=== PATIENT | female | born 1945 | race Two or more races ===

== ENCOUNTER 2021-11-05 23:36 | Inpatient (IN) | payer MEDICAID, OTHER ==
[~2021-11-05] VITALS: Ht 147.3 cm; Wt 74.8 kg
[2021-11-06] MEDS ORDERED: HYDROMORPHONE 1 MG/1 ML DISP.SYRIN ONE ×2 (00:20→02:46)
[2021-11-06] MEDS ORDERED: ONDANSETRON HCL/PF 4 MG/2 ML VIAL ONE (00:20)
--- NOTE | 2021-11-06 00:20 | NUR ---
BIBRA 41 FROM HOME C/O L SIDED H/A, L RIB PAIN, AND L ARM PAIN S/P FALL OUT OF BED.+BLOOD THINNERS. NO NEURO DEFECITS NOTED BREATHING EVEN AND UNLABORED. PT CHANGED INTO GOWN AND PLACED ON MONITOR AND V/S STABLE.
--- NOTE | 2021-11-06 00:23 | NUR ---
BLOOD COLLECTED AND SENT TO LAB
[2021-11-06] MEDS ORDERED: ONDANSETRON HCL/PF 4 MG/2 ML VIAL IVP ONE (00:30)
[2021-11-06] MEDS ORDERED: HYDROMORPHONE INJ 2 MG/ML DISP.SYRIN IV ONE (00:30)
[2021-11-06 00:47] LABS: BASOPHILS # (AUTO) 0.1 K/uL (0.0-0.2); BASOPHILS % (AUTO) 0.9 % (0.0-2.0); EOSINOPHILS % (AUTO) 14.5 % (0.0-6.0); HEMATOCRIT 32 % (33-45); HEMOGLOBIN 10.1 g/dL (11.5-14.8); LYMPHOCYTES # (AUTO) 1.5 K/uL (0.8-4.8); LYMPHOCYTES % (AUTO) 12.8 % (20.0-44.0); MEAN CORPUSCULAR HGB CONC 32 g/dl (31.0-36.0); MEAN CORPUSCULAR VOLUME 87 fL (82-100); MONOCYTES # (AUTO) 0.5 K/uL (0.1-1.30); MONOCYTES % (AUTO) 4.6 % (2.0-12.0); NEUTROPHILS # (AUTO) 7.8 K/uL (1.8-8.9); NEUTROPHILS % (AUTO) 67.2 % (43.0-81.0); PLATELET COUNT (AUTO) 252 K/uL (150-450); RED BLOOD CELL COUNT(AUTO) 3.62 MIL/uL (4.0-5.2); WHITE BLOOD COUNT (AUTO) 11.6 K/uL (4.3-11.0)
[2021-11-06 00:58] LABS: ABG BASE EXCESS 2.5 mmol/L; ABG PCO2 49.7 mmHg (35.0-45.0); ABG PH 7.374 (7.350-7.450); ABG PO2 56.8 mmHg (75.0-100.0); COHb 0.8 % (0.5-1.5); MetHb 0.3 % (0.0-1.5); O2Hb 87.6 % (94.0-97.0); SITE, ABG Right Radial; VENT MODE, BG NC 2L
[2021-11-06 01:27] LABS: ALANINE AMINOTRANSFERASE 21 U/L (12-78); ALBUMIN 3.5 g/dL (3.4-5.0); ALCOHOL, BLOOD < 3 mg/dL (0-0); ALKALINE PHOSPHATASE 144 U/L (46-116); ASPARTATE AMINOTRANSFERASE 19 U/L (15-37); BILIRUBIN,DIRECT 0.1 mg/dL (0.0-0.2); BILIRUBIN,TOTAL 0.3 mg/dL (0.2-1.0); CALCIUM, SERUM 8.4 mg/dL (8.5-10.1); CARBON DIOXIDE 31 mmol/L (21-32); CHLORIDE 99 mmol/L (98-107); GLUCOSE 205 mg/dL (74-106); POTASSIUM 5.3 mmol/L (3.5-5.1); SODIUM SERUM 135 mmol/L (136-145); TOTAL PROTEIN, SERUM 8.1 g/dL (6.4-8.2); UREA NITROGEN, BLOOD 48 mg/dL (7-18)
[2021-11-06 01:37] LABS: CREATININE 8.7 mg/dL (0.6-1.3)
--- NOTE | 2021-11-06 01:43 | NUR ---
COVID TEST SWABBED AND SENT TO LAB
--- NOTE | 2021-11-06 02:28 | NUR ---
Dr Suarez paged per Dr Xiao.
--- NOTE | 2021-11-06 02:40 | NUR ---
AT BED SIDE SPEAKING TO THE PT AND THE FAMILY
--- NOTE | 2021-11-06 02:55 | NUR ---
Dr Woodall paged per Dr Xiao
[2021-11-06] MEDS ORDERED: HYDROMORPHONE 1 MG/1 ML DISP.SYRIN IV ONE (03:00)
[2021-11-06 03:07] LABS: MAGNESIUM 2.3 mg/dL (1.8-2.4); PHOSPHORUS 3.5 mg/dL (2.5-4.9)
--- NOTE | 2021-11-06 03:24 | NUR ---
LAB AT BEDSIDE FOR BLOOD DRAW
[2021-11-06] MEDS ORDERED: MAGNESIUM HYDROXIDE 30 ML UDC PO PRN (04:30)
[2021-11-06] MEDS ORDERED: ONDANSETRON HCL/PF 4 MG/2 ML VIAL IVP PRN (04:30)
[2021-11-06] MEDS ORDERED: MORPHINE SULFATE INJ 2 MG/ML DISP.SYRIN IV PRN (04:30)
[2021-11-06] MEDS ORDERED: Z GUARD REMEDY 4 OZ OINT TP PRN (04:30)
[2021-11-06] MEDS ORDERED: HYDROCODONE/APAP 5/325MG TABLET PO PRN (04:30)
[2021-11-06] MEDS ORDERED: ZOLPIDEM TARTRATE 5 MG TABLET PO PRN (04:30)
[2021-11-06] MEDS ORDERED: MAG HYDROX/AL HYDROX/SIMETH 30 ML UDC PO PRN (04:30)
--- NOTE | 2021-11-06 04:30 | NUR ---
MRSA SWAB COLLECTED AND SENT TO LAB. PATIENT'S BELONGINGS LIST DONE.
--- NOTE | 2021-11-06 04:55 | NUR ---
bed assignment : 112-1
[2021-11-06] MEDS ORDERED: CLONIDINE HCL 0.1 MG TABLET ONE (04:56)
[2021-11-06] MEDS ORDERED: CLONIDINE HCL 0.1 MG TABLET PO ONE ×2 (05:00→12:00)
--- NOTE | 2021-11-06 05:45 | NUR ---
REPORT GIVEN TO ZOHAIB
--- NOTE | 2021-11-06 06:06 | NUR ---
PT TRANSPORTED TO ROOM 112 ON CARDIAC PER ACLS PROTOCOL VIA GURNEY. V/S STABLE AT TIME OF TRANSFER.
--- NOTE | 2021-11-06 06:20 | NUR ---
RN NOTES RECEIVED CARE OF PATIENT FROM ER NURSE. PATIENT IS A/O X4, ABLE TO VERBALIZE NEEDS, UZBEK SPEAKING. PATIENT ON O2 THERAPY VIA NC AT 4L/MIN, O2 SAT IS 94%, NO SOB NOTED. PATIENT ON TELE MONITOR READING NSR WITH HR OF 85, NO DISTRESS NOTED. PATIENT COMPLAINS OF PAIN ON HER LEFT SIDE, PAIN FOCUSED ON LEFT SIDE OF THE HEAD AND RIBS, WILL ADMINISTER PRN PAIN MEDICATIONS ORDERED. IV ACCESS ON R HAND G 20 PATENT AND FLUSHES WELL. ALL SAFETY MEASURES IMPLEMENTED, BED LOCKED IN PLACE AND AT LOWEST POSITION, SIDE RAILS UP X2, CALL LIGHT WITHIN REACH. WILL CONTINUE TO MONITOR.
[2021-11-06] MEDS: hydrALAZINE HCL IV 20 MG VIAL IV PRN ×3 (06:44→15:25)
--- NOTE | 2021-11-06 07:30 | NUR ---
RN OPENING NOTE RECEIVED CARE OF PATIENT FROM GAME TECHNICIAN NURSE. PATIENT IS A/O X4, ABLE TO VERBALIZE NEEDS, BOLIVIAN SPEAKING. PATIENT ON O2 THERAPY VIA NC AT 4L/MIN, O2 SAT IS >95%, NO SOB NOTED. PATIENT ON TELE MONITOR READING NSR WITH HR OF 85, NO DISTRESS NOTED. PATIENT COMPLAINS OF PAIN ON HER LEFT SIDE, PAIN FOCUSED ON LEFT SIDE OF THE HEAD AND RIBS. IV ACCESS ON R HAND G 20 PATENT AND FLUSHES WELL. ALL SAFETY MEASURES IMPLEMENTED, BED LOCKED IN PLACE AND AT LOWEST POSITION, SIDE RAILS UP X2, CALL LIGHT WITHIN REACH. WILL CONTINUE TO MONITOR.
[2021-11-06] MEDS: PANTOPRAZOLE 40 MG TABLET.DR PO SCH (07:57)
[2021-11-06 08:00] VITALS: BP 164/78
[2021-11-06] MEDS ORDERED: NIFE60TA73 PO (08:54)
[2021-11-06] MEDS ORDERED: APIX5TAB PO (08:54)
[2021-11-06] MEDS ORDERED: ALBU18HF2 IH (08:54)
[2021-11-06] MEDS ORDERED: FOLI0.8T23 PO (08:54)
[2021-11-06] MEDS ORDERED: SIMV-46 PO (08:54)
[2021-11-06] MEDS ORDERED: LORA10TA68 PO (08:54)
[2021-11-06] MEDS ORDERED: LEVO-146 PO (08:54)
[2021-11-06] MEDS ORDERED: PANT40TA2 PO (08:54)
[2021-11-06] MEDS ORDERED: LOSA100T31 PO (08:54)
[2021-11-06] MEDS ORDERED: INSU100V3 SQ (08:54)
[2021-11-06] MEDS: IPRATROPIUM NEB FS 0.5 MG/2.5 ML AMPUL.NEB NEB SCH ×4 (11:26→23:08)
[2021-11-06 12:00] VITALS: BP 224/89
[2021-11-06] MEDS: HYDROCODONE/APAP 5/325MG TABLET PO PRN (15:26)
[2021-11-06 16:00] VITALS: BP 165/75
[2021-11-06] MEDS: hydrALAZINE HCL 25 MG TABLET PO SCH ×2 (16:00→20:37)
[2021-11-06 16:28] LABS: BAND % (MANUAL) 2 % (0.0-5.0); EOSINOPHILS % (MANUAL) 11 % (0-4); LYMPHOCYTES % (MANUAL) 11 % (16-48); MONOCYTES % (MANUAL) 3 % (0-11.0); NEUTROPHILS % (MANUAL) 73 (42-76)
--- NOTE | 2021-11-06 16:50 | NUR ---
RN NOTE HYDRALAZINE P0 HELD FOR HEMODIALYSIS. WILL ADMINIISTER PRN.
--- NOTE | 2021-11-06 18:44 | NUR ---
RN CLOSING NOTE PATIENT REMAINED STABLE THROUGHOUT SHIFT. PATIENT IS A/O X4, ABLE TO VERBALIZE NEEDS, MALTESE SPEAKING. PATIENT ON O2 THERAPY VIA NC AT 4L/MIN, O2 SAT IS >95%, NO SOB NOTED. PATIENT ON TELE MONITOR READING NSR WITH HR OF 91, NO DISTRESS NOTED. PATIENT COMPLAINS OF PAIN ON HER LEFT SIDE, PAIN FOCUSED ON LEFT SIDE OF THE HEAD AND RIBS. IV ACCESS ON R HAND G 20 PATENT AND FLUSHES WELL. ALL NEEDS MET AND MEDS ADMINISTERED PER MD ORDER. ALL SAFETY MEASURES IMPLEMENTED, BED LOCKED IN PLACE AND AT LOWEST POSITION, SIDE RAILS UP X2, CALL LIGHT WITHIN REACH. WILL ENDORSE TO TIME ANALYSIS CLERK RN.
--- NOTE | 2021-11-06 19:00 | NUR ---
PATIENT RECEIVED HD, 2.L OUT, PER HD NURSE BLOOD PRESSURE STILL 180S, WILL RECHECK AGAIN, PATIENT A/O X4, DAUGHTER AT BEDSIDE, NO SOB/ACUTE DISTRESS, NO CHANGE IN LOC, DENIES ANY HEADACHE, WILL CONTINUE TO MONITOR CLOSELY.
[2021-11-06 20:00] VITALS: BP 144/76
[2021-11-07] VITALS: BP 174/76
[2021-11-07] MEDS: hydrALAZINE HCL IV 20 MG VIAL IV PRN (00:27)
[2021-11-07 04:00] VITALS: BP 172/72
[2021-11-07] MEDS: hydrALAZINE HCL 25 MG TABLET PO SCH ×3 (04:13→20:36)
[2021-11-07] MEDS: IPRATROPIUM NEB FS 0.5 MG/2.5 ML AMPUL.NEB NEB SCH ×6 (04:32→23:47)
[2021-11-07] MEDS: HYDROCODONE/APAP 5/325MG TABLET PO PRN ×3 (05:30→20:35)
--- NOTE | 2021-11-07 06:44 | NUR ---
PATIENT ASLEEP AROUSES TO VERBAL STIMULI , PATIENT A/O X4, ABLE TO VERBALIZE NEEDS AND CONCERNS, NO CHANGE IN LOC, NO SOB/ACUTE DISTRESS, NO CHANGE IN LOC, WITH EPISODES OF HIGH BLOOD PRESSURE, MEDICATION ADMINISTERED ORDERED, HYDRALAZINE PRN X ONCE, LAST BLOOD PRESSURE 150/70 AT 0450, NORCO ADMINISTERED FOR PAIN IN LEFT RIB MANAGER PHARMACY, OTHERWISE NO SIGNIFICANT CHANGE IN CONDITION, REPOSITION PROVIDED AND KEEP HER DRY AND CLEAN, CALL LIGHT W/I REACH, WILL ENDORSE CONTINUITY OF CARE TO NEXT SHIFT NURSE.
[2021-11-07 07:23] LABS: CALCIUM, SERUM 8.2 mg/dL (8.5-10.1); CARBON DIOXIDE 28 mmol/L (21-32); CHLORIDE 97 mmol/L (98-107); CREATININE 6.8 mg/dL (0.6-1.3); GLUCOSE 148 mg/dL (74-106); MAGNESIUM 2.2 mg/dL (1.8-2.4); PHOSPHORUS 3.9 mg/dL (2.5-4.9); POTASSIUM 5.4 mmol/L (3.5-5.1); SODIUM SERUM 133 mmol/L (136-145); UREA NITROGEN, BLOOD 30 mg/dL (7-18)
--- NOTE | 2021-11-07 07:48 | NUR ---
RN OPENING NOTE RECEIVED PATIENT IN BED PATIENT IS A/O X4, ABLE TO VERBALIZE NEEDS, KAZAKH SPEAKING. PATIENT ON O2 THERAPY VIA NC AT 4L/MIN, NO SOB NOTED. NO DISTRESS NOTED. IV ACCESS ON R HAND G 20 PATENT AND FLUSHES WELL. ALL SAFETY MEASURES IMPLEMENTED, BED LOCKED IN PLACE AND AT LOWEST POSITION, SIDE RAILS UP X2, CALL LIGHT WITHIN REACH.
[2021-11-07 08:00] VITALS: BP 159/76
[2021-11-07 08:18] LABS: BASOPHILS # (AUTO) 0.1 K/uL (0.0-0.2); BASOPHILS % (AUTO) 0.7 % (0.0-2.0); EOSINOPHILS % (AUTO) 8.7 % (0.0-6.0); HEMATOCRIT 31 % (33-45); HEMOGLOBIN 10.1 g/dL (11.5-14.8); LYMPHOCYTES # (AUTO) 0.6 K/uL (0.8-4.8); LYMPHOCYTES % (AUTO) 6.5 % (20.0-44.0); MEAN CORPUSCULAR HGB CONC 32 g/dl (31.0-36.0); MEAN CORPUSCULAR VOLUME 88 fL (82-100); MONOCYTES # (AUTO) 0.5 K/uL (0.1-1.30); MONOCYTES % (AUTO) 4.8 % (2.0-12.0); NEUTROPHILS # (AUTO) 7.8 K/uL (1.8-8.9); NEUTROPHILS % (AUTO) 79.3 % (43.0-81.0); PLATELET COUNT (AUTO) 236 K/uL (150-450); RED BLOOD CELL COUNT(AUTO) 3.54 MIL/uL (4.0-5.2); WHITE BLOOD COUNT (AUTO) 9.8 K/uL (4.3-11.0)
[2021-11-07] MEDS: PANTOPRAZOLE 40 MG TABLET.DR PO SCH (08:43)
[2021-11-07 09:14] LABS: ABG BASE EXCESS 0.1 mmol/L; ABG OXYGEN SATURATION 95.8 % (92.0-98.5); ABG PCO2 39.2 mmHg (35.0-45.0); ABG PH 7.415 (7.350-7.450); ABG PO2 81.9 mmHg (75.0-100.0); AaDO2 158.2 mmHg; COHb 1.2 % (0.5-1.5); MetHb 0.3 % (0.0-1.5); O2Hb 94.4 % (94.0-97.0); SITE, ABG Right Radial; VENT MODE, BG 5LPM NC
[2021-11-07 11:44] LABS: THYROID STIMULATING HORMONE 1.561 uIU/mL (0.358-3.74)
[2021-11-07 12:00] VITALS: BP 168/82
[2021-11-07 16:00] VITALS: BP 163/84
[2021-11-07] MEDS: ACETAMINOPHEN 325 MG TABLET PO PRN (16:13)
[2021-11-07] MEDS: NIFEdipine XL (30MG) 30 MG TAB PO SCH (16:13)
[2021-11-07] MEDS ORDERED: NIFEdipine XL (30MG) 30 MG TAB PO SCH (17:00)
--- NOTE | 2021-11-07 19:02 | NUR ---
CT of HEAD shows New mild to moderate acute subarachnoid hemorrhage in the right quadrigeminal cistern taxed to waiting for returning call back
--- NOTE | 2021-11-07 19:08 | NUR ---
RN CLOSING NOTE PATIENT REMAINED STABLE THROUGHOUT SHIFT. PATIENT IS A/O X4, ABLE TO VERBALIZE NEEDS, TAJIK SPEAKING. PATIENT ON O2 THERAPY VIA NC AT 4L/MIN, O2 SAT IS >95%, NO SOB NOTED. PATIENT ON TELE MONITOR, NO DISTRESS NOTED. PATIENT COMPLAINS OF PAIN ON HER LEFT SIDE, PAIN FOCUSED ON LEFT SIDE OF THE HEAD AND RIBS. IV ACCESS ON R HAND G 20 PATENT AND FLUSHES WELL. ALL NEEDS MET AND MEDS ADMINISTERED PER MD ORDER. ALL SAFETY MEASURES IMPLEMENTED, BED LOCKED IN PLACE AND AT LOWEST POSITION, SIDE RAILS UP X2, CALL LIGHT WITHIN REACH. WILL ENDORSE TO SEED LABORATORY ASSISTANT RN.
--- NOTE | 2021-11-07 19:20 | NUR ---
RN NOTE RECEIVED PATIENT IN BED RESTING ALERT ORIENTED X4 VERBALLY RESPONSIVE ON 4L OXYGEN VIA NASAL CANNULA O2:95% IV SITE IS ON LEFT HAND INTACT PATIENT AV SHUNT IS ON LEFT ARM DIALYSIS SITE,PATIENT RETURNED FORM CT OF HEAD,RESULT SENT TO DR ALAMO, HE ORDERED REPEAT CT OF HEAD WITHOUT CONTRAST TOMORROW MORNING,NOTED AND CARRIED OUT,SAFETY MEASURE IMPLEMENT,BED IN LOW POSITION AND LOCKED CALL LIGHT WITHIN REACH,CONTINUE TO MONITOR.
[2021-11-07 20:00] VITALS: BP 152/77
[2021-11-08] VITALS: BP 149/77
[2021-11-08] MEDS: IPRATROPIUM NEB FS 0.5 MG/2.5 ML AMPUL.NEB NEB SCH ×6 (03:49→23:39)
[2021-11-08] MEDS: HYDROCODONE/APAP 5/325MG TABLET PO PRN ×3 (03:53→21:28)
--- NOTE | 2021-11-08 03:53 | NUR ---
RN NOTE NORCO 5-325MG PRN GIVEN FOR PAIN CONTINUE TO MONITOR.
[2021-11-08 04:00] VITALS: BP 143/69
[2021-11-08] MEDS: hydrALAZINE HCL 25 MG TABLET PO SCH ×3 (04:48→21:28)
--- NOTE | 2021-11-08 06:00 | NUR ---
RN NOTE PAIN LEVEL IS 3/10 CONTINUE TO MONITOR.
--- NOTE | 2021-11-08 06:49 | NUR ---
RN NOTE PATIENT REMAINS ON ALERT ORIENTED X4 VERBALLY RESPONSIVE ON 4L OXYGEN VIA NASAL CANNULA, O2:95% NO SOB NOT ACUTE DISTRESS NOTED KEPT CLEAN AND DRY ALL THE TIME,ALL DUE MEDS GIVEN MD ORDERED,REPOSITIONED EVERY 2 HOURS ALL NEEDS MET ENDORSE NEXT COMING SHIFT FOR CONTINUATION OF CARE
--- NOTE | 2021-11-08 07:36 | NUR ---
RN OPENING NOTE PATIENT RECEIVED IN BED, RESTING. PATIENT ON 4L O2 NC WITH NO SIGNS OF LABORED BREATHING AT THIS TIME. RIGHT HAND 22G SL IN PLACE, LEFT ARM AV SHUNT IN PLACE. BED LOCKED AND IN LOWEST POSITION, CALL LIGHT WITHIN REACH, 3 SIDE RAILS UP. WILL CONTINUE TO MONITOR.
[2021-11-08] MEDS: PANTOPRAZOLE 40 MG TABLET.DR PO SCH (07:45)
[2021-11-08 08:00] VITALS: BP 147/65
--- NOTE | 2021-11-08 08:29 | NUR ---
RN NOTE PATIENT SCHEDULED TO RECEIVE DIALYSIS TODAY. ALL BP MEDS HELD. WILL CONTINUE TO MONITOR.
[2021-11-08] MEDS: NIFEdipine XL (30MG) 30 MG TAB PO SCH ×2 (08:30→16:01)
[2021-11-08] MEDS: ACETAMINOPHEN 325 MG TABLET PO PRN (09:35)
[2021-11-08 12:00] VITALS: BP 123/71
--- NOTE | 2021-11-08 12:00 | NUR ---
RN NOTE HD COMPLETED, PATIENT TOLERATED WELL. 2,000CC REMOVED. VITAL SIGNS STABLE.
[2021-11-08 16:00] VITALS: BP 151/72
[2021-11-08] MEDS ORDERED: ALBUTEROL FS 2.5 MG/0.5 ML VIAL.NEB NEB PRN (16:30)
--- NOTE | 2021-11-08 18:50 | NUR ---
RN CLOSING NOTE PATIENT REMAIN IN BED, RESTING. PATIENT ON 4L O2 NC WITH NO SIGNS OF LABORED BREATHING AT THIS TIME. RIGHT HAND 22G SL IN PLACE, LEFT ARM AV SHUNT IN PLACE. ALL NEEDS ATTENDED DURING SHIFT. DAUGHTER AT BEDSIDE. BED LOCKED AND IN LOWEST POSITION, CALL LIGHT WITHIN REACH, 3 SIDE RAILS UP. WILL ENDORSE TO OB/GYN PHYSICIAN NURSE.
--- NOTE | 2021-11-08 19:00 | NUR ---
RN NOTE RECEIVED PATIENT IN BED, AO X 4, JAPANESE SPEAKING, IN NO ACUTE DISTRESS AT THIS TIME. BREATHING EVEN AND UNLABORED, SATURATION AT 97% ON 4L VIA NC, SR ON THE MONITOR, HR IS 96. NOTED IV SITE AT R HAND 22G, PATENT AND FLUSHING WELL, NO SIGN OF INFILTRATION OR INFECTION. L ARM AV FISTULA IN PLACE, DRESSING INTACT. NO COMPLAINTS OF PAIN AT THE MOMENT, FAMILY AT BEDSIDE. SAFETY MEASURES IMPLEMENTED. PATIENT BED ALARM IS ON. HEAD OF BED ELEVATED. BED IS LOCKED, IN LOWEST POSITION AND SIDE RAILS UP. CALL LIGHT WITHIN REACH OF THE PATIENT. WILL CONTINUE TO MONITOR AND REASSESS FOR ANY CHANGES.
[2021-11-08 20:00] VITALS: BP 132/72
[2021-11-08] MEDS: SIMVASTATIN 10 MG TABLET PO SCH (21:28)
--- NOTE | 2021-11-08 21:30 | NUR ---
RN NOTE PATIENT WENT ON RAPID AFIB WITH HR AT 150-160'S, BP AT 115/70. DR ROBERTS WAS NOTIFIED, ORDER RECEIVED FOR CARDIZEM 5 MG IV X 1. WILL CONTINUE TO MONITOR PATIENT. Addendum: 11/09/21 at 0041 by UMBERTO JONES RN WRONG TIMED DOCUMENTATION, CORRECT TIME: 8183
[2021-11-08] MEDS ORDERED: DILTIAZEM HCL 25 MG IV INJ ONE (22:30)
--- NOTE | 2021-11-08 22:30 | NUR ---
RN NOTE PATIENT WENT ON RAPID AFIB WITH HR AT 150-160'S, BP AT 115/70. DR ROBERTS WAS NOTIFIED, ORDER RECEIVED FOR CARDIZEM 5 MG IV X 1. WILL CONTINUE TO MONITOR PATIENT.
[2021-11-08] MEDS ORDERED: DILTIAZEM HCL 25 MG IV IV STA (22:43)
--- NOTE | 2021-11-08 22:55 | NUR ---
RN NOTE PATIENT STILL ON RAPID AFIB, WITH HR AT 140-150'S. PT NOW C/O SHORTNESS OF BREATH, DR ROBERTS NOTIFIED, ORDER RECEIVED FOR A SECOND CARDIZEM 5 MG IV X 1, AND ATIVAN 1 MG IV X 1. WILL CONT TO MONITOR PATIENT
--- NOTE | 2021-11-08 23:15 | NUR ---
RN NOTE DR ROBERTS AT BEDSIDE, STATED CARDIOLOGY WAS MADE AWARE. ORDER RECEIVED TO TRANSFER PATIENT TO ICU. CNC OPERATOR MACHINIST SHYLA AWARE
[2021-11-08] MEDS ORDERED: LORAZEPAM INJ 2 MG/ML VIAL IV ONE (23:30)
[2021-11-08] MEDS ORDERED: DILTIAZEM HCL IV 125 MG in IV NS 0.9% 100 ML IV PRN (23:30)
[2021-11-08] MEDS ORDERED: INSULIN REGULAR, HUMAN 100 UNIT/ML 3 ML VIAL SQ ONE (23:30)
[2021-11-08] MEDS ORDERED: DILTIAZEM HCL 25 MG IV IV ONE (23:30)
[2021-11-08] MEDS ORDERED: DEXTROSE 50%-WATER 50 ML DISP.SYRIN IVP ONE (23:30)
--- NOTE | 2021-11-08 23:30 | NUR ---
RN NOTE PATIENT TRANSFERRED TO ICU VIA ACLS PROTOCOL IN STABLE CONDITION, LATEST BP 131/92. REPORT GIVEN TO TONY ADAN FOR CONTINUATION OF CARE.
[2021-11-09] VITALS (22 sets, daily range): BP systolic 107–151; BP diastolic 41–91
--- NOTE | 2021-11-09 00:15 | NUR ---
ICU NOTE RECEIVED PT FROM [facility], PT ALERT AND ORIENTED X4. NOT IN ANY DISTRESS. PT CONVERTED TO SINUS TACHYCARDIA WITH HEART RATE OF 101-104. PT DENIES SOB. NOTIFIED NURSE PRACTICAL TELECOMMUNICATION LINES REPAIRER AARON, CARDIZEM DRIP HAS NOT STARTED YET. PER TELECOMMUNICATION LINES REPAIRER TO HOLD CARDIZEM DRIP AND MONITOR FOR NOW. BP IN NORMAL RANGE. AFEBRILE. PT ON 4L O2 VIA NC. ALL SAFETY MEASURES IN PLACE PER PROTOCOL. WILL CONTINUE TO MONITOR.
[2021-11-09 00:25] LABS: CALCIUM, SERUM 8.2 mg/dL (8.5-10.1); CARBON DIOXIDE 26 mmol/L (21-32); CHLORIDE 94 mmol/L (98-107); CREATININE 6.3 mg/dL (0.6-1.3); GLUCOSE 171 mg/dL (74-106); MAGNESIUM 1.9 mg/dL (1.8-2.4); PHOSPHORUS 4.3 mg/dL (2.5-4.9); POTASSIUM 4.4 mmol/L (3.5-5.1); SODIUM SERUM 131 mmol/L (136-145); UREA NITROGEN, BLOOD 27 mg/dL (7-18)
[2021-11-09] MEDS ORDERED: DILTIAZEM HCL IV 125 MG in IV NS 0.9% 100 ML IV PRN (00:30)
[2021-11-09] MEDS: IPRATROPIUM NEB FS 0.5 MG/2.5 ML AMPUL.NEB NEB SCH ×6 (03:35→23:14)
[2021-11-09 04:12] LABS: BASOPHILS % (AUTO) 0.5 % (0.0-2.0); EOSINOPHILS % (AUTO) 1.7 % (0.0-6.0); HEMATOCRIT 33 % (33-45); HEMOGLOBIN 10.6 g/dL (11.5-14.8); LYMPHOCYTES # (AUTO) 0.8 K/uL (0.8-4.8); LYMPHOCYTES % (AUTO) 8.8 % (20.0-44.0); MEAN CORPUSCULAR HGB CONC 32 g/dl (31.0-36.0); MEAN CORPUSCULAR VOLUME 88 fL (82-100); MONOCYTES # (AUTO) 0.7 K/uL (0.1-1.30); MONOCYTES % (AUTO) 7.4 % (2.0-12.0); NEUTROPHILS # (AUTO) 7.6 K/uL (1.8-8.9); NEUTROPHILS % (AUTO) 81.6 % (43.0-81.0); PLATELET COUNT (AUTO) 276 K/uL (150-450); RED BLOOD CELL COUNT(AUTO) 3.78 MIL/uL (4.0-5.2); WHITE BLOOD COUNT (AUTO) 9.4 K/uL (4.3-11.0)
[2021-11-09 04:38] LABS: ALANINE AMINOTRANSFERASE 15 U/L (12-78); ALKALINE PHOSPHATASE 120 U/L (46-116); ASPARTATE AMINOTRANSFERASE 12 U/L (15-37); BILIRUBIN,TOTAL 0.3 mg/dL (0.2-1.0); CALCIUM, SERUM 8.1 mg/dL (8.5-10.1); CARBON DIOXIDE 28 mmol/L (21-32); CHLORIDE 95 mmol/L (98-107); CREATININE 6.6 mg/dL (0.6-1.3); GLUCOSE 163 mg/dL (74-106); MAGNESIUM 2.1 mg/dL (1.8-2.4); PHOSPHORUS 4.9 mg/dL (2.5-4.9); POTASSIUM 4.8 mmol/L (3.5-5.1); SODIUM SERUM 132 mmol/L (136-145); TOTAL PROTEIN, SERUM 7.3 g/dL (6.4-8.2); UREA NITROGEN, BLOOD 29 mg/dL (7-18)
[2021-11-09] MEDS: hydrALAZINE HCL 25 MG TABLET PO SCH ×3 (05:34→21:08)
--- NOTE | 2021-11-09 07:19 | NUR ---
RN CLOSING NOTE PT REMAINS IN BED. SINUS RHYTHM ON TELE MONITOR WITH HR OF 86. PT DENIES ANY CHEST PAIN OR ANY ELSE PAIN. AV SHUNT ON LFA WITH DRESSING INTACT, NO BLEEDING NOTED. BRUIT AND THRILL PRESENT. IV LINE ON RWRIST PATENT AND INTACT. DUE MED WERE GIVEN ORDERED. ALL SAFETY MEASURES MAINTAINED. ENDORSED TO NEXT SHIFT NURSE FOR JESSICA.
--- NOTE | 2021-11-09 07:30 | NUR ---
CONSUMER LOAN SPECIALIST OPENING NOTES RECEIVED PATIENT IN BED, A/O X4 HONDURAN SPEAKING. PATIENT HAS NO SIGNS OF ACUTE DISTRESS OR CHEST DISCOMFORT. NO SOB OR LABORED BREATHING NOTED. BREATHING EXPANSION IS SYMMETRICAL. PATIENT IS RECEIVING O2 SUPPLEMENTATION 4L VIA NASAL CANNULA, SATING AT 95%. PATIENT IS SR IN THE 90S. PATIENT HAS R WRIST 22G, INTACT AND FLUSHES WELL. LEFT AV FISTULA IS INTACT AND NO BLEEDING FROM THE SITE. ALL SAFETY MEASURES IN PLACE, BED IN LOWEST POSITION AND LOCKED. CALL LIGHT WITHIN REACH. WILL CONTINUE TO MONITOR PATIENT.
[2021-11-09] MEDS: LEVOTHYROXINE SODIUM 50 MCG TABLET PO SCH (07:47)
[2021-11-09] MEDS: PANTOPRAZOLE 40 MG TABLET.DR PO SCH (07:47)
[2021-11-09] MEDS: NIFEdipine XL (30MG) 30 MG TAB PO SCH ×2 (08:58→16:31)
[2021-11-09] MEDS: HYDROCODONE/APAP 5/325MG TABLET PO PRN ×3 (10:54→23:04)
[2021-11-09] MEDS: METOPROLOL TARTRATE 25 MG TABLET PO SCH ×2 (12:37→21:08)
[2021-11-09] MEDS: GUAIFENESIN 300 MG/15 ML UDC PO PRN (14:22)
--- NOTE | 2021-11-09 17:52 | NUR ---
RN NOTE PATIENT RECEIVED ON THE FLOOR, STABLE. PATIENT ON 4L O2 NC SATURATION 94% ON MONITOR. PATIENT A&OX4, MEDICALLY STABLE, SINUS RHYTHM HR 82 ON MONITOR. RIGHT WRIST 22G SL AND RIGHT UA MIDLINE IN PLACE, PATENT, NO FLUID RUNNING. NO SIGNS OF ACUTE DISTRESS NOTED AT THIS TIME. BED LOCKED AND IN LOWEST POSITION, 2 SIDE RAILS UP, CALL LIGHT WITHIN REACH. WILL CONTINUE TO MONITOR.
--- NOTE | 2021-11-09 18:09 | NUR ---
TRANSFER NOTES PATIENT TRANSFERRED TO [facility] PER PROTOCOL AND GAVE REPORT TO ANTIONETTE COLE FOR JESSICA.
--- NOTE | 2021-11-09 18:41 | NUR ---
RN CLOSING NOTE PATIENT REMAINS IN BED, AWAKE, A&OX4. PATIENT ON 4L O2 NC WITH NO SIGNS OF LABORED BREATHING AT THIS TIME. RIGHT UA MIDLINE AND RIGHT WRIST 22G SL IN PLACE, PATENT. LEFT FA AV FISTULA IN PLACE. ALL NEEDS ATTENDED, NO SIGNS OF ACUTE DISTRESS AT THIS TIME. BED LOCKED AND IN LOWEST POSITION, CALL LIGHT WITHIN REACH, 3 SIDE RAILS UP. WILL ENDORSE TO CHIEF LOCK TENDER OPERATOR NURSE.
--- NOTE | 2021-11-09 19:10 | NUR ---
RN NOTES PATIENT IN BED, AWAKE, A&OX4. PATIENT ON 4L O2 NC WITH NO SIGNS OF LABORED BREATHING AT THIS TIME. WITH IV ACCESS RIGHT UA MIDLINE AND RIGHT WRIST 22G SL IN PLACE, PATENT. LEFT FA AV FISTULA + THRILL AND + BRUIT.FAMILY AT BEDSIDE, NO SIGNS OF ACUTE DISTRESS AT THIS TIME. BED LOCKED AND IN LOWEST POSITION, CALL LIGHT WITHIN REACH, 3 SIDE RAILS UP. WILL CLOSELY MONITOR THE PATIENT
[2021-11-09] MEDS: SIMVASTATIN 10 MG TABLET PO SCH (21:09)
[2021-11-10] VITALS: BP 108/51
[2021-11-10] MEDS: IPRATROPIUM NEB FS 0.5 MG/2.5 ML AMPUL.NEB NEB SCH ×6 (02:56→23:35)
[2021-11-10] MEDS: ACETAMINOPHEN 325 MG TABLET PO PRN (03:02)
[2021-11-10 04:00] VITALS: BP 137/66
[2021-11-10] MEDS: hydrALAZINE HCL 25 MG TABLET PO SCH ×3 (04:21→21:04)
[2021-11-10] MEDS: HYDROCODONE/APAP 5/325MG TABLET PO PRN ×4 (05:42→21:09)
--- NOTE | 2021-11-10 06:37 | NUR ---
RN NOTES PATIENT REMAINS IN BED, AWAKE, A&OX4. PATIENT ON 4L O2 NC WITH NO SIGNS OF LABORED BREATHING AT THIS TIME. RIGHT UA MIDLINE AND RIGHT WRIST 22G SL IN PLACE, PATENT. LEFT FA AV FISTULA + BRUIT + THRILL. ALL NEEDS ATTENDED, NO SIGNS OF ACUTE DISTRESS AT THIS TIME. BED LOCKED AND IN LOWEST POSITION, CALL LIGHT WITHIN REACH, 3 SIDE RAILS UP.FREQUENT VISUAL MONITORING RENDERED WILL ENDORSE FOR JESSICA.
[2021-11-10 07:10] LABS: BASOPHILS % (AUTO) 0.2 % (0.0-2.0); EOSINOPHILS % (AUTO) 5.7 % (0.0-6.0); HEMATOCRIT 33 % (33-45); HEMOGLOBIN 10.4 g/dL (11.5-14.8); LYMPHOCYTES # (AUTO) 0.8 K/uL (0.8-4.8); LYMPHOCYTES % (AUTO) 7.3 % (20.0-44.0); MEAN CORPUSCULAR HGB CONC 31 g/dl (31.0-36.0); MEAN CORPUSCULAR VOLUME 89 fL (82-100); MONOCYTES # (AUTO) 0.8 K/uL (0.1-1.30); MONOCYTES % (AUTO) 7.4 % (2.0-12.0); NEUTROPHILS # (AUTO) 8.3 K/uL (1.8-8.9); NEUTROPHILS % (AUTO) 79.4 % (43.0-81.0); PLATELET COUNT (AUTO) 302 K/uL (150-450); RED BLOOD CELL COUNT(AUTO) 3.73 MIL/uL (4.0-5.2); WHITE BLOOD COUNT (AUTO) 10.4 K/uL (4.3-11.0)
--- NOTE | 2021-11-10 07:26 | NUR ---
RN OPENING NOTE PATIENT RECEIVED IN BED, AWAKE, A&OX4. PATIENT ON 4L O2 NC WITH NO SIGNS OF LABORED BREATHING AT THIS TIME. RIGHT UA MIDLINE AND RIGHT WRIST 22G SL IN PLACE, PATENT. LEFT FA AV FISTULA IN PLACE. NO SIGNS OF ACUTE DISTRESS AT THIS TIME. BED LOCKED AND IN LOWEST POSITION, CALL LIGHT WITHIN REACH, 3 SIDE RAILS UP. WILL CONTINUE TO MONITOR.
[2021-11-10] MEDS: PANTOPRAZOLE 40 MG TABLET.DR PO SCH (07:36)
[2021-11-10] MEDS: LEVOTHYROXINE SODIUM 50 MCG TABLET PO SCH (07:36)
--- NOTE | 2021-11-10 07:44 | NUR ---
RN NOTE PATIENT RECEIVING DIALYSIS AT THIS TIME. TOLERATING WELL SO FAR. ALL BP MEDS WILL BE HELD. WILL CONTINUE TO MONITOR.
[2021-11-10 08:00] VITALS: BP 97/65
[2021-11-10] MEDS: METOPROLOL TARTRATE 25 MG TABLET PO SCH ×2 (08:29→21:04)
[2021-11-10] MEDS: NIFEdipine XL (30MG) 30 MG TAB PO SCH ×2 (08:29→16:13)
[2021-11-10 09:03] LABS: ALANINE AMINOTRANSFERASE 17 U/L (12-78); ALBUMIN 2.9 g/dL (3.4-5.0); ALKALINE PHOSPHATASE 111 U/L (46-116); ASPARTATE AMINOTRANSFERASE 12 U/L (15-37); BILIRUBIN,TOTAL 0.4 mg/dL (0.2-1.0); CALCIUM, SERUM 8.4 mg/dL (8.5-10.1); CARBON DIOXIDE 25 mmol/L (21-32); CHLORIDE 94 mmol/L (98-107); GLUCOSE 229 mg/dL (74-106); MAGNESIUM 2.3 mg/dL (1.8-2.4); PHOSPHORUS 5.7 mg/dL (2.5-4.9); POTASSIUM 5.4 mmol/L (3.5-5.1); SODIUM SERUM 131 mmol/L (136-145); TOTAL PROTEIN, SERUM 7.8 g/dL (6.4-8.2); UREA NITROGEN, BLOOD 47 mg/dL (7-18)
[2021-11-10 09:09] LABS: CREATININE 8.6 mg/dL (0.6-1.3)
--- NOTE | 2021-11-10 09:14 | NUR ---
RN NOTE CRITICAL LAB VALUE OF CREATININE 8.[address] FIGUEROA. PATIENT CURRENTLY RECEIVING DIALYSIS. NO NEW ORDER AT THIS TIME. WILL CONTINUE TO MONITOR.
--- NOTE | 2021-11-10 10:00 | NUR ---
RN NOTE PATIENT TOLERATED DIALYSIS WELL, 2,000CC REMOVED. VITAL SIGNS STABLE. NO SIGNS OF ACUTE DISTRESS NOTED. WILL CONTINUE TO MONITOR.
[2021-11-10 12:00] VITALS: BP 111/66
[2021-11-10] MEDS: GUAIFENESIN 300 MG/15 ML UDC PO PRN (12:14)
[2021-11-10 16:00] VITALS: BP 150/68
--- NOTE | 2021-11-10 18:35 | NUR ---
RN CLOSING NOTE PATIENT REMAINS IN BED, AWAKE, A&OX4. PATIENT ON 4L O2 NC WITH NO SIGNS OF LABORED BREATHING AT THIS TIME. RIGHT UA MIDLINE AND RIGHT WRIST 22G SL IN PLACE, PATENT. LEFT FA AV FISTULA IN PLACE. NO SIGNS OF ACUTE DISTRESS AT THIS TIME. 2,000CC REMOVED DURING DIALYSIS. ALL NEEDS ATTENDED DURING SHIFT. BED LOCKED AND IN LOWEST POSITION, CALL LIGHT WITHIN REACH, 3 SIDE RAILS UP. WILL ENDORSE TO SUPERVISOR TYPE PHOTOGRAPHY NURSE.
[2021-11-10 20:00] VITALS: BP 143/50
--- NOTE | 2021-11-10 20:00 | NUR ---
RN NOTE RECEIVED PT IN BED, ALERT AND ORIENTED X 4. ON O2 VIA NC AT 4LPM. NO SIGNS OF DISTRESS NOTED. PT DENIES ANY SOB. COMPLAINED OF MILD PAIN ON LEFT LATERAL CHEST, OFFERED PAIN MED, REFUSED AT THIS TIME. AV FISTULA ON LFA, DRESSING INTACT, NO BLEEDING NOTE. BRUIT AND THRILL PRESENT. MIDLINE ON CLAUDIO PATENT AND INTACT, FLUSHES WELL. WILL CONTINUE TO MONITOR. ALL SAFETY MEASURES IN PLACE PER PROTOCOL. SANCHEZ LIGHT WITHIN REACH.
[2021-11-10] MEDS: SIMVASTATIN 10 MG TABLET PO SCH (21:04)
[2021-11-11] VITALS: BP 134/72
[2021-11-11] MEDS: HYDROCODONE/APAP 5/325MG TABLET PO PRN ×3 (01:46→14:54)
[2021-11-11] MEDS: IPRATROPIUM NEB FS 0.5 MG/2.5 ML AMPUL.NEB NEB SCH ×6 (03:12→23:25)
[2021-11-11 04:00] VITALS: BP 127/60
[2021-11-11] MEDS: hydrALAZINE HCL 25 MG TABLET PO SCH ×3 (04:54→21:06)
[2021-11-11] MEDS: LEVOTHYROXINE SODIUM 50 MCG TABLET PO SCH (06:48)
[2021-11-11] MEDS: PANTOPRAZOLE 40 MG TABLET.DR PO SCH (06:48)
--- NOTE | 2021-11-11 06:52 | NUR ---
RN CLOSING NOTES PT REMAINS IN BED, NO CHANGES IN LOC NOTED. ABLE TO MAKE NEEDS KNOWN. PATIENT COMPLAINED OF PAIN ON LEFT LATERAL CHEST, NORCO GIVEN ORDERED. ALL OTHER DUE MEDS WERE GIVEN. CONTINUE ON TELE MONITORING, SINUS RHYTHM WITH HR OF 60S. ALL NEEDS ATTENDED. MIDLINE ON CLAUDIO PATENT AND INTACT. CALL LIGHT WITHIN REACH AT ALL TIMES. WILL ENDORSE TO NEXT SHIFT NURSE FOR JESSICA.
[2021-11-11 07:14] LABS: BASOPHILS % (AUTO) 0.5 % (0.0-2.0); EOSINOPHILS % (AUTO) 6.4 % (0.0-6.0); HEMATOCRIT 33 % (33-45); HEMOGLOBIN 10.5 g/dL (11.5-14.8); LYMPHOCYTES # (AUTO) 0.8 K/uL (0.8-4.8); LYMPHOCYTES % (AUTO) 8.9 % (20.0-44.0); MEAN CORPUSCULAR HGB CONC 32 g/dl (31.0-36.0); MEAN CORPUSCULAR VOLUME 88 fL (82-100); MONOCYTES # (AUTO) 0.7 K/uL (0.1-1.30); MONOCYTES % (AUTO) 7.2 % (2.0-12.0); NEUTROPHILS # (AUTO) 7.3 K/uL (1.8-8.9); PLATELET COUNT (AUTO) 294 K/uL (150-450); RED BLOOD CELL COUNT(AUTO) 3.74 MIL/uL (4.0-5.2); WHITE BLOOD COUNT (AUTO) 9.5 K/uL (4.3-11.0)
--- NOTE | 2021-11-11 07:45 | NUR ---
ASSOCIATE PROFESSOR OF EDUCATION OPENING NOTE RECEIVED PT IN BED, A/O X 4. ON O2 VIA NC AT 5LPM. NO SIGNS OF DISTRESS NOTED. PT DENIES ANY SOB. COMPLAINED OF MILD PAIN ON LEFT LATERAL CHEST, WILL BE ADDRESSED CHEMICALLY. AV FISTULA ON LFA, DRESSING INTACT, NO BLEEDING NOTED. BRUIT AND THRILL PRESENT. MIDLINE ON CLAUDIO PATENT AND INTACT, FLUSHES WELL. ALL SAFETY MEASURES IN PLACE. BED IN LOWEST POSITION AND LOCKED, TWO SIDE RAILS ARE UP. CALL LIGHT WITHIN REACH. WILL CONTINUE TO MONITOR.
[2021-11-11 08:00] VITALS: BP 164/69
[2021-11-11 08:52] LABS: ALANINE AMINOTRANSFERASE 12 U/L (12-78); ALBUMIN 2.9 g/dL (3.4-5.0); ALKALINE PHOSPHATASE 114 U/L (46-116); ASPARTATE AMINOTRANSFERASE 11 U/L (15-37); BILIRUBIN,TOTAL 0.4 mg/dL (0.2-1.0); CALCIUM, SERUM 8.4 mg/dL (8.5-10.1); CARBON DIOXIDE 33 mmol/L (21-32); CHLORIDE 94 mmol/L (98-107); CREATININE 6.5 mg/dL (0.6-1.3); GLUCOSE 182 mg/dL (74-106); MAGNESIUM 2.1 mg/dL (1.8-2.4); PHOSPHORUS 4.7 mg/dL (2.5-4.9); POTASSIUM 4.8 mmol/L (3.5-5.1); SODIUM SERUM 133 mmol/L (136-145); TOTAL PROTEIN, SERUM 7.7 g/dL (6.4-8.2); UREA NITROGEN, BLOOD 33 mg/dL (7-18)
[2021-11-11] MEDS: METOPROLOL TARTRATE 25 MG TABLET PO SCH ×2 (09:17→21:06)
[2021-11-11] MEDS: NIFEdipine XL (30MG) 30 MG TAB PO SCH ×2 (09:17→17:49)
--- NOTE | 2021-11-11 18:05 | NUR ---
RN CLOSING NOTES PATIENT REMAINED STABLE THROUGHOUT THE SHIFT. NO SIGNIFICANT CHANGES IN LOC, OR S/S OF CHEST DISCOMFORT. NO REPORTS OF SOB AND BREATHING EXPANSION IS EQUAL. PATIENT TOLERATED O2 SUPPLEMENTATION WELL. ALL MEDICATIONS ADMINISTERED ORDERED. SAFETY MEASURES STILL IN PLACE. BED IN LOWEST POSITION AND LOCKED, TWO SIDE RAILS ARE UP. CALL LIGHT IS WITHIN REACH. WILL ENDORSE TO ONCOMING SHIFT FOR JESSICA.
--- NOTE | 2021-11-11 19:10 | NUR ---
RN OPENING NOTES RECEIVED PATIENT ON BED, AWAKE, A/O X 4 BENGALI SPEAKING, ABLE TO MAKE NEEDS KNOWN , RESPIRATORY EVEN AND UNLABORED, NO SOB NOTED, NOT IN DISTRESS. REMAIN AFEBRILE. ON NASAL CANULA @ 5LPM SATING AT 95%. NOTED WITH CLAUDIO MIDLINE AND RIGHT WRIST PERIPHERAL LINE # 20 INTACT, PATENT AND FLUSHED WITH NS. NO INFILTRATION NOTED AT SITE. LEFT UPPER ARM AV SHUNT NO BLEEDING NOTED. ALL SAFETY MEASURE PROVIDED, BED ON LOWEST POSITION, LOCKED. CONTINUE TO MONITOR.
[2021-11-11 21:00] VITALS: BP 156/72
[2021-11-11] MEDS: SIMVASTATIN 10 MG TABLET PO SCH (21:07)
[2021-11-12] MEDS: IPRATROPIUM NEB FS 0.5 MG/2.5 ML AMPUL.NEB NEB SCH ×6 (03:30→23:30)
[2021-11-12] MEDS: HYDROCODONE/APAP 5/325MG TABLET PO PRN ×3 (04:02→15:18)
[2021-11-12 05:00] VITALS: BP 151/67
[2021-11-12] MEDS: hydrALAZINE HCL 25 MG TABLET PO SCH ×3 (05:04→22:00)
[2021-11-12 06:02] LABS: BASOPHILS # (AUTO) 0.1 K/uL (0.0-0.2); BASOPHILS % (AUTO) 0.8 % (0.0-2.0); EOSINOPHILS % (AUTO) 5.1 % (0.0-6.0); HEMATOCRIT 32 % (33-45); HEMOGLOBIN 10.5 g/dL (11.5-14.8); LYMPHOCYTES # (AUTO) 0.8 K/uL (0.8-4.8); LYMPHOCYTES % (AUTO) 8.6 % (20.0-44.0); MEAN CORPUSCULAR HGB CONC 32 g/dl (31.0-36.0); MEAN CORPUSCULAR VOLUME 87 fL (82-100); MONOCYTES # (AUTO) 0.6 K/uL (0.1-1.30); NEUTROPHILS # (AUTO) 7.1 K/uL (1.8-8.9); NEUTROPHILS % (AUTO) 78.5 % (43.0-81.0); PLATELET COUNT (AUTO) 305 K/uL (150-450); RED BLOOD CELL COUNT(AUTO) 3.73 MIL/uL (4.0-5.2); WHITE BLOOD COUNT (AUTO) 9.1 K/uL (4.3-11.0)
[2021-11-12 07:09] LABS: ALANINE AMINOTRANSFERASE 16 U/L (12-78); ALKALINE PHOSPHATASE 106 U/L (46-116); ASPARTATE AMINOTRANSFERASE 10 U/L (15-37); BILIRUBIN,TOTAL 0.3 mg/dL (0.2-1.0); CALCIUM, SERUM 8.2 mg/dL (8.5-10.1); CARBON DIOXIDE 31 mmol/L (21-32); CHLORIDE 94 mmol/L (98-107); MAGNESIUM 2.1 mg/dL (1.8-2.4); PHOSPHORUS 5.3 mg/dL (2.5-4.9); POTASSIUM 4.9 mmol/L (3.5-5.1); SODIUM SERUM 134 mmol/L (136-145); TOTAL PROTEIN, SERUM 7.6 g/dL (6.4-8.2); UREA NITROGEN, BLOOD 47 mg/dL (7-18)
--- NOTE | 2021-11-12 07:15 | NUR ---
RN CLOSING NOTES REMAIN STABLE THROUGH OUT THE SHIFT , RESPIRATORY EVEN AND UNLABORED, NO SOB NOTED, NOT IN DISTRESS. REMAIN AFEBRILE. ON NASAL CANULA @ 5LPM SATING AT 95%. ALL DUE MEDS GIVEN ORDERED. ALL SAFETY MEASURE PROVIDED, BED ON LOWEST POSITION, LOCKED. CONTINUE TO MONITOR.
--- NOTE | 2021-11-12 07:52 | NUR ---
RN OPENING NOTES RECEIVED PATIENT IN BED, A/O X 4 PERSIAN SPEAKING, ABLE TO MAKE NEEDS KNOWN, RESPIRATORY EVEN AND UNLABORED, NO SOB NOTED, NOT IN DISTRESS. REMAINS AFEBRILE. ON NASAL CANULA @ 5LPM SATING AT 94-95%. NOTED WITH CLAUDIO MIDLINE AND RIGHT WRIST PERIPHERAL LINE # 20 INTACT, PATENT AND FLUSHED WITH NS. NO INFILTRATION NOTED AT SITE. LEFT UPPER ARM AV SHUNT NO BLEEDING NOTED. ALL SAFETY MEASURE PROVIDED, BED ON LOWEST POSITION, LOCKED. WILL CONTINUE TO MONITOR.
[2021-11-12 08:18] LABS: GLUCOSE 191 mg/dL (74-106)
[2021-11-12 08:19] LABS: CREATININE 7.9 mg/dL (0.6-1.3)
[2021-11-12] MEDS: METOPROLOL TARTRATE 25 MG TABLET PO SCH ×2 (09:10→21:59)
[2021-11-12] MEDS: LEVOTHYROXINE SODIUM 50 MCG TABLET PO SCH (09:11)
[2021-11-12] MEDS: NIFEdipine XL (30MG) 30 MG TAB PO SCH ×2 (09:12→17:48)
[2021-11-12] MEDS: PANTOPRAZOLE 40 MG TABLET.DR PO SCH (09:12)
[2021-11-12 13:00] VITALS: BP 156/78
[2021-11-12] MEDS: DOCUSATE SODIUM 100 MG CAPSULE PO SCH (17:47)
--- NOTE | 2021-11-12 19:40 | NUR ---
RN OPENING NOTES RECEIVED PATIENT IN BED, AWAKE, A/O X 4 WELSH SPEAKING, VERBALLY RESPONSIVE. ON O2 AT 5L/MIN VIA N/C AND PT TOLERATED WELL. BREATHING EVEN AND UNLABORED. NO SOB NOTED,IV ACCESS ON CLAUDIO MIDLINE AND RIGHT WRIST SALINE LOCK # 20G INTACT AND PATENT. NO S/S OF INFILTRATIONS. LEFT UPPER ARM AV SHUNT, NO BLEEDING NOTED. NO C/O PAIN OR DISCOMFORT. NO ACUTE DISTRESS. ALL SAFETY MEASURE IN PLACE, BED ON LOWEST POSITION AND LOCKED. PLACE CALL LIGHT WITH IN REACH. SIDE RAILS UP X2. WILL CONTINUE TO MONITOR.
[2021-11-12 20:00] VITALS: BP 131/66
[2021-11-12] MEDS: SIMVASTATIN 10 MG TABLET PO SCH (21:58)
[2021-11-13] MEDS: IPRATROPIUM NEB FS 0.5 MG/2.5 ML AMPUL.NEB NEB SCH ×4 (03:30→15:58)
[2021-11-13 04:00] VITALS: BP 121/64
[2021-11-13] MEDS: HYDROCODONE/APAP 5/325MG TABLET PO PRN (04:29)
[2021-11-13] MEDS: hydrALAZINE HCL 25 MG TABLET PO SCH ×2 (04:29→13:37)
--- NOTE | 2021-11-13 04:35 | NUR ---
RN NOTES: PT C/O MODERATE PAIN ON LEFT SIDE OF THE RIBS. NORCO GIVEN PRN ORDERED. PT TOLERATED WELL. WILL CONTINUE TO MONITOR
--- NOTE | 2021-11-13 06:50 | NUR ---
RN CLOSING NOTES PATIENT IN BED, AWAKE, A/O X 4 [place] R[place] SPEAKING, VERBALLY RESPONSIVE. ON O2 AT 5L/MIN VIA N/C, O2 SAT 95%. AND PT TOLERATED WELL. BREATHING EVEN AND UNLABORED. NO SOB NOTED,IV ACCESS ON CLAUDIO MIDLINE AND RIGHT WRIST SALINE LOCK # 20G INTACT AND PATENT. NO S/S OF INFILTRATIONS. LEFT UPPER ARM AV SHUNT, NO BLEEDING NOTED. NO C/O PAIN OR DISCOMFORT. NO ACUTE DISTRESS. ALL DUE MEDS GIVEN ORDERED. ALL SAFETY MEASURE IN PLACE, BED ON LOWEST POSITION AND LOCKED. PLACE CALL LIGHT WITH IN REACH. SIDE RAILS UP X2. WILL ENDORSE TO MORNING SHIFT NURSE.
--- NOTE | 2021-11-13 07:30 | NUR ---
RN MS NOTES PT AWAKE, ALERT AND ORIENTED, SITIING IN HER CHAIR, EATING BREAKFAST, DENIES PAIN, NOT IN DISTRESS, CALL LIGHT WITHIN REACH, NEEDS ATTENDED.
[2021-11-13] MEDS: DOCUSATE SODIUM 100 MG CAPSULE PO SCH ×2 (08:19→16:21)
[2021-11-13] MEDS: PANTOPRAZOLE 40 MG TABLET.DR PO SCH (08:20)
[2021-11-13] MEDS: METOPROLOL TARTRATE 25 MG TABLET PO SCH (08:20)
[2021-11-13] MEDS: NIFEdipine XL (30MG) 30 MG TAB PO SCH ×2 (08:20→16:22)
[2021-11-13] MEDS: LEVOTHYROXINE SODIUM 50 MCG TABLET PO SCH (08:20)
--- NOTE | 2021-11-13 09:12 | NUR ---
PT. IS AWAKE AND ALERT TITRATE DOWN HER OXYGEN FLOW FROM 5 LPM TO 2 LPM O2 FLOW. SPO2 98% NO INCREASE WORK OF BREATHING NOTED. Addendum: 11/13/21 at 0914 by ABI LOCKHART RT Amended: Links added.
[2021-11-13] MEDS ORDERED: HYDR-4076 PO (11:09)
[2021-11-13] MEDS ORDERED: METO25TA20 PO (11:09)
[2021-11-13] MEDS ORDERED: DOCU100C36 PO (11:09)
--- NOTE | 2021-11-13 11:09 | NUR ---
RN MS NOTES PT IN BED, NOT IN DISTRESS, TRIAL DONE FOR ROOM AIR O2, PT DESATURATES TO 80%, PLACED BACK ON 2LPM VIA N/C, O2 SAT WENT BACK UP TO 95%, PT AND FAMILY INFORMED, WALESKA GRANT INFORMED.
[2021-11-13 12:00] VITALS: BP 155/64
[2021-11-13 16:22] VITALS: BP 164/72
--- NOTE | 2021-11-13 18:32 | NUR ---
RN MS NOTES PT AWAKE, SITTING IN HER CHAIR, ON O2 AT 2LPM VIA N/C, NOT IN DISTRESS, WITH O2 SAT OF 96%, NO COMPLAINT OF PAIN, PT COMPLETED HEMODIALYSIS, 1.7 LITER OUTPUT, PM MEDS GIVEN, DISCHARGE ORDER GIVEN BY DR. ADAMS, DISCHARGE AND MEDICATION INSTRUCTIONS PROVIDED TO PT AND DAUGHTER MARIA DE JESUS, VERBALIZED UNDERSTANDING, OXYGEN CONCENTRATOR AND PORTABLE O2 DELIVERED, EDUCATION PROVIDED TO DAUGHTER MARIA DE JESUS ON O2 USE, VERBALIZED UNDERSTANDING, NEW PRESCRIPTION GIVEN TO PT, BELONGINGS ACCOUNTED FOR, ASSISTED PT TO WHEELCHAIR, ASSISTED TO CAR, LEFT WITH DAUGHTER IN STABLE CONDITION.
[2021-11-13] MEDS ORDERED: hydrALAZINE HCL 50 MG TABLET PO SCH (21:00)
== END 2021-11-13 18:31 | disposition home health service (06) | DRG 55 ==
LOC: ER 23:38 → EDBD 23:38 → TELE1 11-06 04:58 → ICU 11-08 23:58 → TELE1 11-09 17:37 → MEDSG1 11-11 10:07
PROVIDERS: ADMIT Nurse Practitioner Acute Care; ATTEND Nurse Practitioner Acute Care
PROC: 5A1D70Z Performance of Urinary Filtration, Intermittent, Less than 6 Hours Per Day (ICD-10-PCS; 2021-11-06)
PROC: 05HY33Z Insertion of Infusion Device into Upper Vein, Percutaneous Approach (ICD-10-PCS; principal; 2021-11-09)
DX: S06.6X0A Traumatic subarachnoid hemorrhage without loss of consciousness, initial encounter (principal); I12.0 Hypertensive chronic kidney disease with stage 5 chronic kidney disease or end stage renal disease; E87.1 Hypo-osmolality and hyponatremia; D63.1 Anemia in chronic kidney disease; E66.2 Morbid (severe) obesity with alveolar hypoventilation; I24.8 Other forms of acute ischemic heart disease; E11.22 Type 2 diabetes mellitus with diabetic chronic kidney disease; N18.6 End stage renal disease; I48.0 Paroxysmal atrial fibrillation; J44.9 Chronic obstructive pulmonary disease, unspecified; Z99.2 Dependence on renal dialysis; E87.5 Hyperkalemia; E87.70 Fluid overload, unspecified; E11.40 Type 2 diabetes mellitus with diabetic neuropathy, unspecified; I16.0 Hypertensive urgency; W01.0XXA Fall on same level from slipping, tripping and stumbling without subsequent striking against object, initial encounter; I31.3 Pericardial effusion (noninflammatory); Y92.009 Unspecified place in unspecified non-institutional (private) residence as the place of occurrence of the external cause; G47.33 Obstructive sleep apnea (adult) (pediatric); Z68.34 Body mass index [BMI] 34.0-34.9, adult; Z20.822 Contact with and (suspected) exposure to COVID-19
CPT/HCPCS: 36415; 36600; 70450-TC; 71045-TC; 71100-TC; 71250-TC; 72125-TC; 73060-TC; 73090-TC; 80048-TC; 80053-TC; 80076-TC; 82803-TC; 83735-TC; 84100-TC; 84443-TC; 84484-TC; 85025-TC; 85730-TC; 86706; 87081-TC; 87340; 90935-TC; 93307-TC; 94799-TC; 97112-TC; 97116-TC; 97530-TC; C9803; G0378; G0480; J0360; J1170; J1815; J2060; J2270; J2405; J3490; J7030